=== PATIENT | female | born 1960 | race Caucasian/White ===

== ENCOUNTER 2017-04-12 15:32 | Inpatient (IN) ==
[2017-04-12] MEDS ORDERED: Aspirin 81 MG TAB.CHEW PO ONE (15:54)
[2017-04-12] MEDS ORDERED: 0.9 % Sodium Chloride 500 ML IVC ONE (15:54)
[2017-04-12 15:56] LABS: Basophils # 0.1 K/mcL (0.0-0.2); Basophils % 0.9 %; Eosinophils # 0.1 K/mcL (0.0-0.6); Eosinophils % 0.7 %; Hematocrit 37.1 % (35.3-44.9); Hemoglobin 10.8 g/dL (11.5-15.4); Immature Granulocytes % 0.4 % (0-4); Mean Corpuscular HGB Conc 29.1 g/dL (31.6-35.5); Mean Corpuscular Hemoglobin 19.4 pg (28.0-33.3); Mean Corpuscular Volume 66.7 fL (83.0-100.0); Mean Platelet Volume 9.7 fL (9.4-12.4); Monocytes # 0.6 K/mcL (0.0-1.3); Monocytes % 5.5 %; Neutrophils # 7.3 K/mcL (1.6-8.9); Platelet Count 388 K/mcL (140-400); Red Blood Count 5.56 M/mcL (3.82-4.97); Red Cell Distribution Width 17.2 % (11.5-14.5); Segmented Neutrophils % 72.5 %
--- NOTE | 2017-04-12 15:59 | Emergency Department Note ---
Disposition Clinical Impression: Numbness on left side, Atypical chest pain Disposition: Admitted As Inpatient Condition: Fair Referrals: Ren Garcia MD [Primary Care Provider] - Time of Disposition: 18:35 General Adult HPI - General Chief complaint: ED Chest Pain Stated complaint: Neuro symptoms/CP Time Seen by Provider: 04/12/17 15:37 Source: patient Mode of arrival: ambulatory Limitations: no limitations Nursing Notes Reviewed: Yes Vital Signs Reviewed: Yes - History of Present Illness HPI Narrative: 56-year-old female street hypertension and GERD, and hiatal hernia, presents complaining of chest pain and left-sided numbness onset 01:00 this a.m., she states actually that she has had chest pain for 3 days, headache for the last 3 days, she has been generally weak for the last 2 weeks. And she thinks that this morning at about 1 AM she noticed that her left side was numb she describes numbness in her face her arm and her leg. He endorses intermittent fever and chills has not taken her temperature, she also describes nonbilious vomiting almost daily, and attributes this to her hiatal hernia. She states her pain is 8 out of 10, located substernal and radiating to her left chest, crampy in quality. Patient also endorses diarrhea and constipation. Patient has no history of CVA, no history of [place] last stress test was 5 years ago. Onset (ago): hour(s) (13) Location: face, chest, left, upper extremity, lower extremity Radiation: non-radiation Pain Severity: severe Pain Scale: 8 Quality: burning, aching Consistency: intermittent Improves with: nothing Worsens with: nothing Treatments Prior to Arrival: none - Related Data Home Medications Medication Instructions Recorded Confirmed Esomeprazole Magnesium [Nexium] 40 mg PO BID 04/12/17 04/12/17 Hydroxychloroquine [Plaquenuil] 200 mg PO BID 04/12/17 04/12/17 Metoprolol [Lopressor] 25 mg PO BID 04/12/17 04/12/17 Oxycodone HCl/Acetaminophen 1 each PO TID PRN 04/12/17 04/12/17 [Percocet 10-325 mg Tablet] Promethazine [Phenergan] 25 mg PO TID PRN 04/12/17 04/12/17 Sertraline [Zoloft] 150 mg PO DAILY 04/12/17 04/12/17 hydroCHLOROthiazide 25 mg PO DAILY 04/12/17 04/12/17 [Hydrochlorothiazide] Allergies Allergy/AdvReac Type Severity Reaction Status Date / Time escitalopram [From Lexapro] Allergy Hives Verified 04/12/17 17:27 Sulfa (Sulfonamide Allergy Hives Verified 04/12/17 15:43 Antibiotics) amlodipine [From Norvasc] AdvReac Headache Verified 04/12/17 17:27 aripiprazole [From Abilify] AdvReac Unknown Verified 04/12/17 17:27 codeine AdvReac Vomiting Verified 04/12/17 17:27 duloxetine [From Cymbalta] AdvReac Unknown Verified 04/12/17 17:27 quetiapine [From Seroquel] AdvReac Chest Pain Verified 04/12/17 17:27 All systems ED: reviewed and negative except as stated. Review of Systems: As Per HPI Constitutional: Reports: fever, chills Eyes: Denies: eye pain ENT ED: Denies: ear pain Cardiovascular: Reports: as per HPI, chest pain Respiratory: Reports: dyspnea. Denies: cough Gastrointestinal: Reports: as per HPI, nausea, vomiting, diarrhea, constipation Genitourinary: Reports: urgency Musculoskeletal: Denies: back pain, neck pain Integumentary: Denies: rash, abrasion Neurological: Reports: as per HPI, headache, weakness, numbness, paresthesias. Denies: abnormal gait Psychiatric: Reports: as per HPI, anxiety Past Medical History - Past Medical History Attestation: Yes The following information was validated with the patient. Source: patient Medical history: Reports: GERD, hypertension Psychiatric history: Reports: anxiety, depression - Social History Smoking Status: Never smoker Smokeless Tobacco Status: No Alcohol use: Reports: none Drug use: Reports: none Physical Exam Constitutional: Patient with elevated blood pressure 190 systolic, appears very agitated and shaky and anxious Eyes: PERRLA, sclera anicteric ENT & Mouth: MM dry Neck: normal inspection, neck is supple Resp: CTA bilaterally, no resp distress CV: RRR, no m/g/r GI: normal inspection, soft, mild tenderness to palpation diffusely with no guarding or rigidity Neuro: A&O3, sensory deficit on the left upper and lower extremi ty, motor strength 5 out of 5 upper and lower extremity, gait untested Skin: on limited exam, skin intact with no rashes or lesions - General General appearance: alert, in no apparent distress Course Course Narrative: 56-year-old female with history of hypertension, no recent stress test has been having generalized weakness and chest pain, she has multiple positive review of systems symptoms and given her age and comorbidities including elevated systolic blood pressure history of hypertension and GERD, obesity, and her neurologic symptoms, I give her an NIH of 1 for the sensory deficits on her left face and upper and lower extremity, but otherwise she has no focal neurologic abnormalities, her NIH and the time of onset preclude her from being a candidate for TPA, however will get a stat CT head, and chest pain workup plan for aspirin and nitroglycerin trial after CT imaging is obtained, chest pain workup likely admission - Reevaluation(s) Reevaluation #1: Patient so with NIH of 1, multiple symptoms including headache, I did add additional fluids and Toradol for headache and Phenergan, patient's chest x-ray and troponin were negative, her EKG showed no evidence of acute ischemic changes , was unchanged from previous EKG 2 years ago, she get aspirin and nitroglycerin which reduced her blood pressure did help out with her chest pain but she still persisted of a headache, admission is to hospitalist service for further workup including possible MRI carotid studies for her neurologic complaints. Time: 18:34 Vital Signs Temperature 98.4 F 04/12/17 15:37 Pulse Rate 90 04/12/17 15:37 Respiratory Rate 16 04/12/17 15:37 Blood Pressure 196/114 04/12/17 15:37 O2 Sat by Pulse Oximetry 99 04/12/17 15:37 Temperature 98.4 F 04/12/17 15:37 Pulse Rate 98 04/12/17 17:55 Respiratory Rate 16 04/12/17 18:03 Blood Pressure 160/80 04/12/17 18:03 O2 Sat by Pulse Oximetry 98 04/12/17 17:55 Oxygen Delivery Oxygen Delivery Room Air Medical Decision Making - MDM Narrative Medical decision making narrative: 56-year-old female with chest pain and headache and new left-sided neuro symptoms outside of the window for TPA, given aspirin admitted to the medicine service for further workup - Medical Records Medical records reviewed: Yes I reviewed the patient's medical records. - Lab Data Lab results reviewed: Yes I reviewed the patient's lab results. Result diagrams: 04/12/17 15:45 04/12/17 15:45 Lab Results 04/12/17 04/12/17 04/12/17 Range/Units 15:45 15:45 15:45 WBC 10.1 (4.3-11.1) K/mcL RBC 5.56 H (3.82-4.97) M/mcL Hgb 10.8 L (11.5-15.4) g/dL Hct 37.1 (35.3-44.9) % MCV 66.7 L (83.0-100.0) fL MCH 19.4 L (28.0-33.3) pg MCHC 29.1 L (31.6-35.5) g/dL RDW 17.2 H (11.5-14.5) % Plt Count 388 (140-400) K/mcL MPV 9.7 (9.4-12.4) fL Immature Gran % 0.4 (0-4) % Seg Neutrophils % 72.5 % Lymphocytes % 20.0 % Monocytes % 5.5 % Eosinophils % 0.7 % Basophils % 0.9 % Neutrophils # 7.3 (1.6-8.9) K/mcL Lymphocytes # 2.0 (0.6-4.6) K/mcL Monocytes # 0.6 (0.0-1.3) K/mcL Eosinophils # 0.1 (0.0-0.6) K/mcL Basophils # 0.1 (0.0-0.2) K/mcL Microcytosis Present A (Not Present) PT 12.1 (9.4-12.1) Seconds INR 1.1 APTT 28.4 (26.0-36.0) Seconds Sodium 136 (136-145) mEq/L Potassium 3.2 L (3.5-4.5) mEq/L Chloride 98 (98-109) mEq/L Carbon Dioxide 26 (19-29) mEq/L BUN 8 (7-20) mg/dL Creatinine 0.71 (0.57-1.11) mg/dL Est GFR ( Amer) > 60 (> 60) Est GFR (Non-Af Amer) > 60 (> 60) BUN/Creatinine Ratio 11 (6-26) Glucose 103 H (70-99) mg/dL Calculated Osmolality 281 (280-300) Calcium 9.8 (8.6-10.8) mg/dL Total Bilirubin 0.6 (0.2-1.2) mg/dL Direct Bilirubin 0.2 (0.0-0.5) mg/dL Indirect Bilirubin 0.4 (0.0-1.2) mg/dL AST 20 (5-34) Units/L ALT 16 (0-55) Units/L Alkaline Phosphatase 101 (38-126) Units/L Troponin I (0-0.03) ng/mL B-Natriuretic Peptide (0-100) pg/mL Serum Total Protein 8.1 (6.0-8.3) g/dL Albumin 4.3 (3.5-5.0) g/dL Globulin 3.8 H (2.4-3.5) g/dL Albumin/Globulin Ratio 1.1 (1.1-2.2) Lipase 29 (8-78) Units/L TSH 1.210 (0.350-4.840) mcIU/mL Urine Color (Yellow) Urine Clarity (Clear) Urine pH (5.0-8.0) pH Units Ur Specific [employer] (1.010-1.025) Urine Protein (Neg-Trace) mg/dL Urine Glucose (UA) (Normal) mg/dL Urine Ketones (Negative) mg/dL Urine Blood (Negative) Urine Nitrite (Negative) Urine Bilirubin (Negative) Urine Urobilinogen (Normal) mg/dL Ur Leukocyte Esterase (Negative) Ur Culture Indicated? (NO) 04/12/17 04/12/17 04/12/17 Range/Units 15:45 15:45 16:00 WBC (4.3-11.1) K/mcL RBC (3.82-4.97) M/mcL Hgb (11.5-15.4) g/dL Hct (35.3-44.9) % MCV (83.0-100.0) fL MCH (28.0-33.3) pg MCHC (31.6-35.5) g/dL RDW (11.5-14.5) % Plt Count (140-400) K/mcL MPV (9.4-12.4) fL Immature Gran % (0-4) % Seg Neutrophils % % Lymphocytes % % Monocytes % % Eosinophils % % Basophils % % Neutrophils # (1.6-8.9) K/mcL Lymphocytes # (0.6-4.6) K/mcL Monocytes # (0.0-1.3) K/mcL Eosinophils # (0.0-0.6) K/mcL Basophils # (0.0-0.2) K/mcL Microcytosis (Not Present) PT (9.4-12.1) Seconds INR APTT (26.0-36.0) Seconds Sodium (136-145) mEq/L Potassium (3.5-4.5) mEq/L Chloride (98-109) mEq/L Carbon Dioxide (19-29) mEq/L BUN (7-20) mg/dL Creatinine (0.57-1.11) mg/dL Est GFR ( Amer) (> 60) Est GFR (Non-Af Amer) (> 60) BUN/Creatinine Ratio (6-26) Glucose (70-99) mg/dL Calculated Osmolality (280-300) Calcium (8.6-10.8) mg/dL Total Bilirubin (0.2-1.2) mg/dL Direct Bilirubin (0.0-0.5) mg/dL Indirect Bilirubin (0.0-1.2) mg/dL AST (5-34) Units/L ALT (0-55) Units/L Alkaline Phosphatase (38-126) Units/L Troponin I 0.00 (0-0.03) ng/mL B-Natriuretic Peptide 108 H (0-100) pg/mL Serum Total Protein (6.0-8.3) g/dL Albumin (3.5-5.0) g/dL Globulin (2.4-3.5) g/dL Albumin/Globulin Ratio (1.1-2.2) Lipase (8-78) Units/L TSH (0.350-4.840) mcIU/mL Urine Color Yellow (Yellow) Urine Clarity Clear (Clear) Urine pH 6.0 (5.0-8.0) pH Units Ur Specific [employer] 1.008 L (1.010-1.025) Urine Protein Negative (Neg-Trace) mg/dL Urine Glucose (UA) Normal (Normal) mg/dL Urine Ketones Negative (Negative) mg/dL Urine Blood Negative (Negative) Urine Nitrite Negative (Negative) Urine Bilirubin Negative (Negative) Urine Urobilinogen Normal (Normal) mg/dL Ur Leukocyte Esterase Negative (Negative) Ur Culture Indicated? NO (NO) - Radiology Data Radiology results reviewed: Yes I reviewed the patient's radiology results. Chest X-Ray 04/12/17 15:55 IMPRESSION: No acute process. D/ / Bob Cortez MD / Bob Cortez MD Interpreting Provider: Bob Cortez MD Head CT 04/12/17 15:56 IMPRESSION: No acute intracranial abnormality. D/ / Abi Morales MD / Abi Morales MD Interpreting Provider: Abi Morales MD - EKG Data EKG #1 EKG attestation: Yes I reviewed and interpreted this EKG. EKG shows normal: sinus rhythm Rate: normal (89 beats per minute OK 176 QRS 100 and QTc 446 motion artifact, T- wave inversions in precordial leads and mild ST depressions seen on previous EKG September 2014) Rhythm: NSR [place]/QRS: normal ST segment depression in: v3, v4, v5 Interpretation: no acute changes - Core Measures AMI Core Measures Followed: Yes Attestation Statement - Attestation Attestation: I examined this patient and my medical decision-making was reviewed with the Resident Physician, Dr. Wong. I agree with the documented findings, disposition and treatment plan as described except to the extent set forth below. Patient is a 56-year-old white female with a chief complaint of chest pain for the past 3 days associated with generalized headaches decreased by mouth intake and occasional vomiting with any attempts at by mouth intake. Patient also here complaining of left-sided numbness that started approximately 15 hours ago at 1 in the morning which has been constant since that time. Patient denies any slurred speech no facial droop, no weakness of the extremities no difficulty ambulating, no dizziness or vertigo. She denies any visual changes. Patient complains of pain in her substernal chest, which patient states is "the same pain that I have been having with my hiatal hernia and my esophagus". Apparently patient has been having symptoms that have been going on for over 6 months involving her hiatal hernia and she had a GI evaluation in [place] which sounds like the findings were achalasia and patient states that she has been referred by her family doctor to come here and see Dr. Bahena in 2 weeks for a second opinion. Patient states that her symptoms have been gradually worsening in regards to ankle swallowing difficulty swallowing and states that now she feels like things get stuck when she swallows and causes vomiting. Patient has had gradually worsening PO intake secondary to these symptoms and also has been having difficulty taking her medications. Patient was concerned with not being able to tolerate her blood pressure medicines with symptoms of numbness and headaches today. Patient arrives with no acute distress, NIH stroke scale equals 1, and based on timeframe patient is far outside the window for any consideration for TPA or stroke alert. I agree with patient's physical exam findings as documented. Patient was quite hypertensive on arrival. She was given nitroglycerin for her chest pain which did not show any improvements with her pain did improve her blood pressure. Patient's EKG shows some old ischemic changes in the inferolateral leads and anteriorly that is unchanged compared to prior EKG. Patient's head CT and chest x-ray were both unremarkable for any acute findings. Patient's lab evaluation is unremarkable overall with a negative troponin. Patient does have a microcytic anemia which is unchanged from prior lab evaluations. Patient's neuro exam has remained stable over time, no worsening symptoms. Considering patient's risk factors we will admit her for further evaluation of this chest pain as well as further neurologic evaluation of her left-sided subjective numbness. Test results were discussed with her and her and they agree with admission for further evaluation and testing. Patient with improved blood pressure at this time, discussed with the hospitalist who accepted patient for admission. NIH Stroke Scale - Level of Consciousness LOC: Alert - LOC Questions LOC Questions: Answers both correctly - LOC Commands LOC Commands: Performs both correctly - Best Gaze Best Gaze: Normal - Visual Visual: No visual loss - Facial Palsy Facial Palsy: Normal - Motor Arms Motor Arm-Left: No drift for 10 seconds Motor Arm-Right: No drift for 10 seconds - Motor Legs Motor Leg-Left: No drift for 5 seconds Motor Leg-Right: No drift for 5 seconds - Limb Ataxia Limb Ataxia: Absent of affected limb too weak to perform exam - Sensory Sensory: Mild to moderate loss, "not as sharp" - Best Language Best Language: No aphasia - Dysarthria Dysarthria: Normal - Extinction and Inattention Extinction and Inattention: Normal - NIHSS Total Score NIHSS Total Score: 1
[2017-04-12 16:04] LABS: INR 1.1; Prothrombin Time 12.1 Seconds (9.4-12.1)
[2017-04-12 16:06] LABS: Activated Partial Thrombo Time 28.4 Seconds (26.0-36.0)
[2017-04-12 16:08] LABS: BUN/Creatinine Ratio 11 (6-26); Blood Urea Nitrogen 8 mg/dL (7-20); Calcium 9.8 mg/dL (8.6-10.8); Carbon Dioxide 26 mEq/L (19-29); Chloride 98 mEq/L (98-109); Glucose 103 mg/dL (70-99); Osmolality,Calculated 281 (280-300); Potassium 3.2 mEq/L (3.5-4.5); Sodium 136 mEq/L (136-145); eGFR For African Americans > 60 (> 60); eGFR For Non-African Americans > 60 (> 60)
[2017-04-12 16:12] LABS: Bilirubin,Urine Negative (Negative); Blood,Urine Negative (Negative); Clarity,Urine Clear (Clear); Color,Urine Yellow (Yellow); Glucose,Urine (UA) Normal (Normal); Ketones,Urine Negative (Negative); Leukocyte Esterase,Urine Negative (Negative); Nitrite,Urine Negative (Negative); Protein,Urine Negative (Neg-Trace); Specific Gravity,Urine 1.008 (1.010-1.025); Urobilinogen,Urine Normal (Normal)
[2017-04-12 16:17] LABS: Microcytosis Present (Not Present)
[2017-04-12 16:20] LABS: Alanine Aminotransferase 16 Units/L (0-55); Albumin 4.3 g/dL (3.5-5.0); Albumin/Globulin Ratio 1.1 (1.1-2.2); Alkaline Phosphatase 101 Units/L (38-126); Aspartate Amino Transferase 20 Units/L (5-34); Bilirubin,Direct 0.2 mg/dL (0.0-0.5); Bilirubin,Indirect 0.4 mg/dL (0.0-1.2); Bilirubin,Total 0.6 mg/dL (0.2-1.2); Globulin 3.8 g/dL (2.4-3.5); Lipase 29 Units/L (8-78); Total Protein 8.1 g/dL (6.0-8.3)
[2017-04-12] MEDS: Nitroglycerin 0.4 MG TAB.SUBL SL ONE ×2 (17:06→17:13)
[2017-04-12] MEDS ORDERED: Ondansetron 4 MG/2 ML VIAL IVP ONE (17:09)
[2017-04-12] MEDS ORDERED: 0.9 % Sodium Chloride 1,000 ML IVC ONE (17:39)
[2017-04-12] MEDS ORDERED: Ketorolac 15 MG/ML VIAL IVP ONE (17:39)
[2017-04-12] MEDS ORDERED: *HR* Promethazine 25 MG/ML VIAL IVP ONE (17:39)
[2017-04-12] MEDS ORDERED: Naloxone 0.4 MG/ML INJ IVP PRN (20:20)
--- NOTE | 2017-04-12 20:32 | Internal Med History&Physical ---
<Beau Trivedi J - Last Filed: 04/12/17 20:30> Date of Encounter: 04/12/17 Time of Encounter: 20:30 Assessment and Plan (1) ACS (acute coronary syndrome) Current visit: Yes Status: Suspected Substernal CP X3 days with radiation to left arm. No prior cardiac history, non- smoker only history of HTN and HLD. ASCVD risk calculator 5.7% low-risk. She appear very anxious, and chest pain appears atypical. Resting on room air and not having conversational dyspnea. However, d/t continued CP and subjective dyspnea We will continue to r/o ACS. Nuclear stress in AM~ consult cardio based on result of stress Serial troponins NPO after midnight Continuous Tele, respiratory support with O2 PRN for dyspnea CBC, BMP in am (2) Atypical chest pain Current visit: Yes Status: Acute see above (3) Anxiety and depression Current visit: Yes Status: Acute H/O anxiety and depression. Continue Zoloft at home dose for depression. Anxiety likely contributing to chest pain/ subjective dyspnea. Was on ativan for years but PCP discontinued. Will start 0.5mg ativan PO TID PRN while in hospital. (4) Numbness on left side Current visit: Yes Status: Acute Continues to endorse N/T of LLE, no focal neuro deficits noted. CT head negative. Continue to monitor for neuro changes. (5) HTN (hypertension) Current visit: Yes Status: Acute Remains hypertensive likely r/t her anxiety. Resumed BB and HCTZ. Continue to monitor and consider adding adjunct therapy if she remains hypertensive. Qualifiers: Hypertension type: essential hypertension Qualified Code(s): I10 - Essential (primary) hypertension (6) Diffuse esophageal spasm Current visit: Yes Status: Acute H/o esophageal spasms. Supposed to get endoscopy in [place]. Assess whether or not she'd like to have it completed here before discharge. (7) DVT prophylaxis Current visit: Yes Status: Acute lovenox 40mg SC daily Internal Medicine - H&P: HPI Chief complaint: CP X3 DAYS, new LUE and LLE n/t Admitted From: Home Plans for Post Hospital Care: Home History of present illness: Ms. Hanson is a 56 year old female with a PMH of GERD, hiatal hernia, HLD, HTN, anxiety and depression presenting to [facility] with an ongoing 3 day h/o substernal CP, and H/A. Chest pain is described as 8/10 achy with radiation to LUE. Additionally she has concerns for LUE, LLE numbness and tingling which began yesterday morning and is ongoing. She admits to intermittent fevers, nausea and vomiting and diarrhea for 3 days as well. Has no cardiac history, no cva history. Workup in ED unremarkable. Ct head negative for acute intracranial process, CXR negative for acute pulmonary process. Admitting for further evaluation and monitoring. Past Med Surg Social Fam HX - Past Medical History Medical history: GERD, hypertension Psychiatric history: anxiety, depression - Social History Smoking Status: Never smoker Smokeless Tobacco Status: No Alcohol use: none Drug use: none - Family History Mother Living Status: Still Living Hx Family Neurologic Disorders: Yes (brain aneurysm) Father Living Status: Hx Family Endocrine Disorder: Yes (pancreatic cancer) Internal Medicine - H&P: Meds Esomeprazole Magnesium [Nexium] 40 mg PO BID 04/12/17 [History] Hydroxychloroquine [Plaquenuil] 200 mg PO BID 04/12/17 [History] Metoprolol [Lopressor] 25 mg PO BID 04/12/17 [History] Oxycodone HCl/Acetaminophen [Percocet 10-325 mg Tablet] 1 each PO TID PRN [History] Promethazine [Phenergan] 25 mg PO TID PRN 04/12/17 [History] Sertraline [Zoloft] 150 mg PO DAILY 04/12/17 [History] hydroCHLOROthiazide [Hydrochlorothiazide] 25 mg PO DAILY 04/12/17 [History] 3 Allergy/AdvReac Type Severity Reaction Status Date / Time escitalopram [From Lexapro] Allergy Hives Verified 04/12/17 17:27 Sulfa (Sulfonamide Allergy Hives Verified 04/12/17 15:43 Antibiotics) amlodipine [From Norvasc] AdvReac Headache Verified 04/12/17 17:27 aripiprazole [From Abilify] AdvReac Unknown Verified 04/12/17 17:27 codeine AdvReac Vomiting Verified 04/12/17 17:27 duloxetine [From Cymbalta] AdvReac Unknown Verified 04/12/17 17:27 quetiapine [From Seroquel] AdvReac Chest Pain Verified 04/12/17 17:27 All Systems PM: A 10-system review of systems was performed and is negative for pertinent findings except as documented above in the HPI. - Constitutional Constitutional: fatigue, weakness, no chills, no fever(s), no night sweats, no weight gain, no weight loss - EENT Eyes: spots in vision (x 2 days ago; has subsided as of this morning), no blurry vision, no change in vision, no loss of vision, no photophobia, no seeing flashes - Cardiovascular Cardiovascular ROS IM: as per HPI, chest pain (x 3 days), dyspnea on exertion, lightheadedness, no edema, no irregular heart rhythm, no orthopnea, no palpitations - Respiratory Respiratory: dyspnea on exertion, no cough, no dyspnea, no wheezing, no pain on inspiration, no chest congestion, no pain with cough - Gastrointestinal Gastrointestinal: abdominal pain (epigastric and RLQ, LLQ chronic pain), nausea , vomiting (for months; she attributes it to hiatal hernia), no change in bowel habits - Genitourinary Genitourinary: no difficulty voiding, no dysuria, no flank pain, no urinary frequency, no urinary hesitancy, no urinary incontinence, no urinary urgency - Musculoskeletal Musculoskeletal ROS IM: arthralgias, back pain (chronic, also c/o chronic left hip pain greater than 1 year), muscle weakness, numbness (N/T LLE, and LUE), tingling, no joint swelling, no limited range of motion, no muscle cramps, no myalgias - Neurological Neurological ROS: as per HPI, headache(s) (x 3 days), numbness, radicular pain, tingling, weakness, no abnormal gait, no abnormal hearing, no abnormal movements , no abnormal speech, no burning sensations, no confusion, no disequilibrium, no dizziness, no focal weakness, no frequent falls, no lack of coordination, no loss of vision - Psychiatric Psychiatric: anxiety, depression - Constitutional Vitals: Temp Pulse Resp BP Pulse Ox 98.2 F 73 16 171/78 95 04/12/17 19:03 04/12/17 19:03 04/12/17 19:03 04/12/17 19:03 10/03/17 19:03 General appearance: Present: mild distress, A&O X 3, answers questions appropriately - Head Head exam: Present: atraumatic, normocephalic - Eye Eye exam: Present: EOMI, PERRL, conjuntiva pink, sclera anicteric Pupils: Present: PERRL - Neck Neck exam general surgery: Present: supple, trachea midline. Absent: lymphadenopathy - Respiratory Respiratory exam: Present: CTAB. Absent: accessory muscle use, rales, rhonchi, wheezes - Cardiovascular Cardiovascular exam: Present: RRR, +S1, +S2. Absent: diastolic murmur, gallop, rubs, systolic murmur - GI/Abdominal GI/Abdominal exam: Present: normal bowel sounds, soft, tenderness (mild tenderness LLQ, RLQ ), no peritoneal signs. Absent: distended, firm, guarding, rebound, rigid - Extremities Exam Extremities exam: Present: warm, radial pulses palpable and symmetrical. Absent : calf tenderness, cyanotic, pedal edema - Neurological Exam Neurological exam: Present: alert, CN II-XII intact, oriented X3, no focal deficits, strengths equal and symetr throughout. Absent: motor sensory deficit , pronater drift, facial droop, speech deficit - Expanded Neurological Exam Patient oriented to: Present: person, place, time Cranial Nerves: EOM's intact PM: Normal, gag reflex PM: Normal, nystagmus PM: Normal, tongue deviation PM: Normal Cerebellar function: finger to nose: Normal, heel to cruz: Normal, Romberg: Normal Upper motor neuron: Babinski sign: Normal, Murphy neglect: Normal, pronator drift : Normal, sensory extinction: Normal Sensory exam: lower extremity light touch: Normal, upper extremity light touch: Normal, upper extremity temperature: Normal Neuro motor strength exam: LUE: 5, RUE: 5, LLE: 5, RLE: 5 Coma Scale Eye Opening: Spontaneous Coma Scale Motor Response: Obeys Commands Coma Scale Verbal Response: Oriented Coma Scale Total: 15 - Psychiatric Psychiatric exam: Present: anxious, depressed. Absent: homicidal ideation, manic, suicidal ideation Internal Med - H&P Results - Labs CBC & Chem 7: 04/12/17 15:45 04/12/17 15:45 - EKG Data -: EKG Interpreted by Myself EKG shows normal: sinus rhythm - EKG Data Prior EKG available for review: yes When compared to previous EKG: there is no significant change - Diagnostic Studies CT scan - head Status: image reviewed by me Additional comments: no acute intracranial process, no midline shift, mass effect or hemorrhage noted. No ischemic changes <Bianka Hsu - Last Filed: 04/13/17 03:34> Date of Encounter: 04/13/17 Internal Medicine - H&P: HPI History of present illness: Ms. Hanson is a 56 year old female All Systems PM: A 10-system review of systems was performed and is negative for pertinent findings except as documented above in the HPI. - Constitutional Vitals: Temp Pulse Resp BP Pulse Ox 98.1 F 74 16 184/93 96 04/13/17 00:18 04/13/17 00:18 04/13/17 00:18 04/13/17 00:18 04/13/17 00:18 Internal Med - H&P Results - Labs CBC & Chem 7: 04/12/17 15:45 04/12/17 15:45 Labs: Cardiac Enzymes 04/12/17 Range/Units 20:55 Troponin I 0.00 (0-0.03) ng/mL - Attending Attestation I have personally performed a face to face evaluation on this patient and I discussed the assessment and plan with the nurse practitioner. I have reviewed and agree with the documented care plan. History and Exam by me shows: Ms. Hanson is a 56 year old female with a PMH of GERD, hiatal hernia, HLD, HTN, anxiety and depression presenting to [facility] with an ongoing 3 day h/o substernal CP, and H/A. Chest pain is described as 8/10 achy with radiation to LUE. Additionally she has concerns for LUE, LLE numbness and tingling which began yesterday morning and is ongoing. She admits to intermittent fevers, nausea and vomiting and diarrhea for 3 days as well. Has no cardiac history, no cva history. Workup in ED unremarkable. Ct head negative for acute intracranial process, CXR negative for acute pulmonary process. Gen: A, A, O x3 Chest : Diminished BS b/l, no crackles / no rales Heat: S1 S2 + RRR No murmurs a/p 1. Acute chest pain check serial trop no acute EKG changes will get stress test in AM 2. Esophageal spasm / Odynophagia Need to f/u with her regular GI as an out pt scheduled for EGD as an out pt in few days 3. Anxiety resumed home meds
[2017-04-12] MEDS: *HR* OxyCODONE/APAP 10/325 TABLET PO PRN (21:34)
[2017-04-13] MEDS: *HR* LORazepam 0.5 MG TABLET PO PRN ×3 (02:50→20:01)
[2017-04-13 04:44] LABS: Basophils # 0.1 K/mcL (0.0-0.2); Basophils % 1.1 %; Eosinophils # 0.1 K/mcL (0.0-0.6); Eosinophils % 1.4 %; Hematocrit 33.8 % (35.3-44.9); Hemoglobin 9.9 g/dL (11.5-15.4); Immature Granulocytes % 0.5 % (0-4); Lymphocytes # 2.5 K/mcL (0.6-4.6); Mean Corpuscular HGB Conc 29.3 g/dL (31.6-35.5); Mean Corpuscular Hemoglobin 19.8 pg (28.0-33.3); Mean Corpuscular Volume 67.5 fL (83.0-100.0); Mean Platelet Volume 10.4 fL (9.4-12.4); Monocytes # 0.8 K/mcL (0.0-1.3); Monocytes % 8.4 %; Neutrophils # 5.7 K/mcL (1.6-8.9); Platelet Count 324 K/mcL (140-400); Red Blood Count 5.01 M/mcL (3.82-4.97); Red Cell Distribution Width 17.2 % (11.5-14.5); Segmented Neutrophils % 61.6 %
[2017-04-13 05:03] LABS: BUN/Creatinine Ratio 13 (6-26); Blood Urea Nitrogen 9 mg/dL (7-20); Carbon Dioxide 24 mEq/L (19-29); Chloride 102 mEq/L (98-109); Glucose 91 mg/dL (70-99); Osmolality,Calculated 280 (280-300); Potassium 3.1 mEq/L (3.5-4.5); Sodium 136 mEq/L (136-145); eGFR For African Americans > 60 (> 60); eGFR For Non-African Americans > 60 (> 60)
[2017-04-13 05:12] LABS: Anisocytosis 1+ (Not Present); Microcytosis Present (Not Present); Platelet Estimate Normal (Normal); Polychromasia 1+ (Not Present)
[2017-04-13] MEDS: *HR* Enoxaparin 40 MG/0.4 ML SYRINGE SQ SCH (06:03)
[2017-04-13] MEDS: *HR* OxyCODONE/APAP 10/325 TABLET PO PRN ×3 (06:04→20:02)
[2017-04-13] MEDS ORDERED: Regadenoson 0.4 MG/5 ML SYRINGE IVP ONE (06:14)
[2017-04-13] MEDS: Aspirin Enteric Coated 81 MG Tablet PO SCH (10:11)
[2017-04-13] MEDS: hydroCHLOROthiazide 25 MG TABLET PO SCH (10:11)
--- NOTE | 2017-04-13 10:37 | Nuclear Medicine Stress Report ---
Regadenoson Nuclear Stress Name: Bharti Hanson Date of Study: 04/13/2017 Date: 1960 Ht: 65.0 in Medical Record#: [id number] Age: 56 Wt: 213.0 lb Gender: Female Order #: [id number] Location: [facility] Room: [employer] [facility] [employer] [facility] Supervising Provider: Selwyn Stinson CNP Reading Physician: Rigoberto Ruiz DO, FACC, FASNC Ordering Physician: Albina Espinosa CNP Stress Technologist: Victor Manuel Quiñones, CHIEF PSYCHOLOGY, CCT Patient Care Manager: Ryan Albarado Indications: Chest Pain Impression: Pharmacologic stress ECG is non-diagnostic for ischemia due to submaximal heart rate and baseline ST and T-wave changes. Gated EF > 70%. Perfusion imaging was negative for ischemia or infarct. History: Hypertension Stress Test Summary: Stress Test Type: Pharmacologic Regadenoson 0.4mg/5ml given IV Baseline Information: Initial Heart Rate: 80 Blood Pressure: 180/98 Stress Information: Stress Time: 4 min 00 sec Test Terminated Due to (primary): Completed Protocol Maximum Blood Pressure: 190/98 Maximum Heart Rate: 109 Percent Maximum Heart Rate Achieved: 67 Double Product: 20,710 METS Reached: 1 Symptoms: Headache Nuclear Summary: SPECT myocardial perfusion imaging using Tc99m Sestamibi given intravenously was performed at rest and following cardiac stress testing. The resting images were obtained following initial dose of 10.4 mCi. Following stress an additional dose of 34.7 mCi was given at peak exercise or 30 seconds post regadenoson infusion. Medication Given: Time Medication Dose Units Route Findings: Stress Note * Resting ECG demonstrated normal sinus rhythm, RBBB, and nonspecific ST-T changes. * No baseline arrhythmias were noted. * Pharmacologic stress ECG is nondiagnostic for ischemia due to submaximal heart rate and baseline ST and T-wave changes. * No arrhythmias were noted during stress. * Patient had no chest pain during stress. Hemodynamic responses * Normal hemodynamic responses to pharmacologic stress. Study Quality * Study quality is good. Gated EF > 70% * Gated EF > 70%. Left Ventricle * The left ventricle is not dilated. * LVEDV = 70 mL. NORMALS * Normal wall motion. * Normal Segmental Perfusion in rest. * Normal segmental perfusion in stress. TID * No evidence of transient ischemic dilatation. TID ratio * TID ratio = 0.86. Lung Uptake * There is no evidence of increase lung uptake. Updated by Rigoberto Ruiz DO, FACMateusz, TIARA, ROLANDA on 04/13/2017 10:28:53 AM electronically signed on 04/13/2017 10:29:46 AM with status of Final
--- NOTE | 2017-04-13 14:17 | Internal Med Progress Note ---
Date of Encounter: 04/13/17 Time of Encounter: 14:12 - Assessment and plan (1) Chest pain Current Visit: Yes Status: Acute Assessment and plan: Bharti Hanson is a 56-year-old female with past medical history hypertension anxiety and depression who presented to [facility] on 04/12/2017 with complaints of chest pain and left-sided arm numbness/tingling. She was placed in observation status for ACS rule out. 1. Chest pain: That started morning of presentation with radiation of pain/ numbness to left arm. ASA given in ED. Serial troponins negative, EKG without acute ST changes. Lexiscan stress test negative for ischemia. Suspect anxiety is contributing to chest pain. 2. Left arm paresthesia: that started morning of presentation. Etiology unknown at this time. Possibly secondary to anxiety. She does have history of previous CVA. Continue home ASA. Brain MRI pending. 3. Hiatal hernia: with diffuse esophageal spasm. Patient reports recent EGD at [facility] that showed impairment peristalsis; she was advised to seek a second opinion. In the process of establishing care with GI here at [place]. Consult GI as this could be contributing to chest pain/discomfort as well. Nothing by mouth at midnight, EGD planned for 04/14 4. Anxiety with depression: per hx. Patient appears very anxious on exam. Follows with psychiatry outpatient and was tapered off Ativan approximately 3 months ago. Suspect her anxiety is contributing to her chest pain and left arm paresthesia. Continue home Zoloft. Psychiatry consult at 4 official medication recommendations. Ativan started on admission, we will continue for now (patient advised that she would not be given Rx for Ativan as medication was stopped per outpatient psychiatry). Will need to follow up with outpatient psychiatry. 5. Loose stool: Reports 2 episodes of watery stool on 04/13/17. Was treated for UTI with ATB approximately 2 months ago. Check stool for C. difficile, if negative can start PRN loperamide 6. Hypokalemia: K 3.1 and in the setting of loose stool. Potassium replaced. Monitor repeat CMP 7. DVT prophylaxis: Lovenox Qualifiers: Chest pain type: other chest pain Qualified Code(s): R07.89 - Other chest pain; R07.8 - Other chest pain (2) Anxiety and depression Current Visit: Yes Status: Acute (3) Diffuse esophageal spasm Current Visit: Yes Status: Acute (4) DVT prophylaxis Current Visit: Yes Status: Acute (5) HTN (hypertension) Current Visit: Yes Status: Acute Qualifiers: Hypertension type: essential hypertension Qualified Code(s): I10 - Essential (primary) hypertension - Subjective Interval history: Seen and examined at bedside, she appears quite anxious and has multiple complaints. She still complaining of chest pain with radiation of pain/ numbness to left arm. She also reports a headache and nasal congestion, abdominal pain and difficulty swallowing. She reported to loose watery stools today as well. - Constitutional Vitals: Temp Pulse Resp BP Pulse Ox 99.7 F H 74 17 178/82 95 04/13/17 11:39 04/13/17 11:39 04/13/17 11:39 04/13/17 11:39 04/13/17 11:39 General appearance: Present: A&O X 3, no acute distress, answers questions appropriately - Head Head exam: Present: atraumatic, normocephalic - Eye Eye exam: Present: PERRL, conjuntiva pink, sclera anicteric Pupils: Present: PERRL - Neck Neck exam general surgery: Present: supple, trachea midline. Absent: lymphadenopathy - Respiratory Respiratory exam: Present: CTAB. Absent: accessory muscle use, rales, rhonchi, wheezes - Cardiovascular Cardiovascular exam: Present: RRR, +S1, +S2. Absent: diastolic murmur, gallop, rubs, systolic murmur - GI/Abdominal GI/Abdominal exam: Present: normal bowel sounds, soft, no peritoneal signs. Absent: distended, tenderness - Extremities Exam Extremities exam: Present: warm, radial pulses palpable and symmetrical. Absent : calf tenderness, cyanotic, pedal edema - Neurological Exam Neurological exam: Present: CN II-XII intact, oriented X3, no focal deficits. Absent: pronater drift, facial droop, speech deficit - Psychiatric Psychiatric exam: Present: anxious - Skin Skin exam: Present: dry, intact Internal Medicine: Result - Labs CBC & Chem 7: 04/13/17 03:07 04/13/17 03:07 Labs: Short CBC 04/13/17 Range/Units 03:07 WBC 9.3 (4.3-11.1) K/mcL Hgb 9.9 L (11.5-15.4) g/dL Hct 33.8 L (35.3-44.9) % Plt Count 324 (140-400) K/mcL Neutrophils # 5.7 (1.6-8.9) K/mcL BMP 04/13/17 03:07 Sodium 136 Potassium 3.1 L Chloride 102 Carbon Dioxide 24 BUN 9 Creatinine 0.69 Glucose 91 Calcium 9.0 Cardiac Enzymes 04/12/17 04/13/17 Range/Units 20:55 03:07 Troponin I 0.00 0.00 (0-0.03) ng/mL - ABG Interpretation ABG results: PT/INR, D-dimer PT 12.1 Seconds (9.4-12.1) 04/12/17 15:45 Consult Discharge Plan - Plan Referrals: Ren Garcia MD [Primary Care Provider] -
[2017-04-14] MEDS: *HR* Enoxaparin 40 MG/0.4 ML SYRINGE SQ SCH (05:35)
[2017-04-14 05:50] LABS: Hemoglobin 10.6 g/dL (11.5-15.4); Mean Corpuscular HGB Conc 29.4 g/dL (31.6-35.5); Mean Corpuscular Hemoglobin 20.3 pg (28.0-33.3); Mean Corpuscular Volume 69.1 fL (83.0-100.0); Platelet Count 310 K/mcL (140-400); Red Blood Count 5.21 M/mcL (3.82-4.97); Red Cell Distribution Width 18.4 % (11.5-14.5)
[2017-04-14 05:52] LABS: INR 1.2; Prothrombin Time 12.5 Seconds (9.4-12.1)
[2017-04-14 06:05] LABS: Alanine Aminotransferase 16 Units/L (0-55); Albumin 3.9 g/dL (3.5-5.0); Albumin/Globulin Ratio 1.2 (1.1-2.2); Alkaline Phosphatase 90 Units/L (38-126); Aspartate Amino Transferase 21 Units/L (5-34); BUN/Creatinine Ratio 10 (6-26); Bilirubin,Total 0.4 mg/dL (0.2-1.2); Blood Urea Nitrogen 7 mg/dL (7-20); Calcium 9.6 mg/dL (8.6-10.8); Carbon Dioxide 26 mEq/L (19-29); Chloride 106 mEq/L (98-109); Globulin 3.3 g/dL (2.4-3.5); Glucose 119 mg/dL (70-99); Osmolality,Calculated 295 (280-300); Potassium 3.7 mEq/L (3.5-4.5); Sodium 143 mEq/L (136-145); Total Protein 7.2 g/dL (6.0-8.3); eGFR For African Americans > 60 (> 60); eGFR For Non-African Americans > 60 (> 60)
[2017-04-14] MEDS: Aspirin Enteric Coated 81 MG Tablet PO SCH (07:59)
[2017-04-14] MEDS: hydroCHLOROthiazide 25 MG TABLET PO SCH (08:00)
[2017-04-14] MEDS: *HR* LORazepam 0.5 MG TABLET PO PRN ×2 (08:00→21:55)
[2017-04-14] MEDS ORDERED: Saline Nasal Spray 44 ML BOTTLE NS PRN (11:30)
--- NOTE | 2017-04-14 11:44 | Internal Med Progress Note ---
Date of Encounter: 04/14/17 Time of Encounter: 11:36 - Assessment and plan (1) Chest pain Current Visit: Yes Status: Acute Assessment and plan: Bharti Hanson is a 56-year-old female with past medical history hypertension anxiety and depression who presented to [facility] on 04/12/2017 with complaints of chest pain and left-sided arm numbness/tingling. She was placed in observation status for ACS rule out. Hospitalization prolonged due to need for GI and Psych consult and uncontrolled BP 1. Hiatal hernia: with diffuse esophageal spasm. Patient reports recent EGD at [facility] that showed impairment in peristalsis; she was advised to seek a second opinion. This could be contributing to chest pain. EGD planned 04/14. GI following. 2. Chest pain: with associated left arm paresthesia that started morning of admission. ASA given in ED. ACS ruled out with negative serial troponin and negative Lexiscan stress test. CVA ruled out with negative brain MRI. Suspect anxiety is contributing to chest pain. 3. Anxiety with depression: per hx. Patient appears very anxious on exam. Follows with psychiatry outpatient and was tapered off Ativan approximately 3 months ago. Suspect her anxiety is contributing to her chest pain and left arm paresthesia. Continue home Zoloft. Psychiatry consult at 4 official medication recommendations. Ativan started on admission, we will continue for now (patient advised that she would not be given Rx for Ativan as medication was stopped per outpatient psychiatry). Will need to follow up with outpatient psychiatry. 4. Loose stool: Reports 2 episodes of watery stool on 04/13/17. Was treated for UTI with ATB approximately 2 months ago. Stool too formed to check for C. diff. Cont PRN loperamide 5. Hypokalemia: K 3.1 and in the setting of loose stool. Normalized with replacement. Monitor repeat CMP 6. DVT prophylaxis: Lovenox Qualifiers: Chest pain type: other chest pain Qualified Code(s): R07.89 - Other chest pain; R07.8 - Other chest pain (2) Anxiety and depression Current Visit: Yes Status: Acute (3) Diffuse esophageal spasm Current Visit: Yes Status: Acute (4) DVT prophylaxis Current Visit: Yes Status: Acute (5) HTN (hypertension) Current Visit: Yes Status: Acute Qualifiers: Hypertension type: essential hypertension Qualified Code(s): I10 - Essential (primary) hypertension - Subjective Interval history: Seen and examined at bedside, she still c/o headache and nasal congestion, abdominal pain and difficulty swallowing. Reports feeling anxious and requesting ativan. No CP, no SOB. She reports dysuria today - Constitutional Vitals: Temp Pulse Resp BP Pulse Ox 98.6 F 98 16 154/99 95 04/14/17 10:49 04/14/17 10:49 04/14/17 10:49 04/14/17 10:49 04/14/17 10:49 General appearance: Present: A&O X 3, no acute distress, answers questions appropriately - Head Head exam: Present: atraumatic, normocephalic - Eye Eye exam: Present: PERRL, conjuntiva pink, sclera anicteric Pupils: Present: PERRL - Neck Neck exam general surgery: Present: supple, trachea midline. Absent: lymphadenopathy - Respiratory Respiratory exam: Present: CTAB. Absent: accessory muscle use, rales, rhonchi, wheezes - Cardiovascular Cardiovascular exam: Present: RRR, +S1, +S2. Absent: diastolic murmur, gallop, rubs, systolic murmur - GI/Abdominal GI/Abdominal exam: Present: normal bowel sounds, soft, no peritoneal signs. Absent: distended, tenderness - Extremities Exam Extremities exam: Present: warm, radial pulses palpable and symmetrical. Absent : calf tenderness, cyanotic, pedal edema - Neurological Exam Neurological exam: Present: CN II-XII intact, oriented X3, no focal deficits. Absent: pronater drift, facial droop, speech deficit Additional comments: appears anxious - Skin Skin exam: Present: dry, intact Internal Medicine: Result - Labs CBC & Chem 7: 04/14/17 05:20 04/14/17 05:20 Labs: Short CBC 04/14/17 Range/Units 05:20 WBC 7.9 (4.3-11.1) K/mcL Hgb 10.6 L (11.5-15.4) g/dL Hct 36.0 (35.3-44.9) % Plt Count 310 (140-400) K/mcL BMP 04/14/17 05:20 Sodium 143 D Potassium 3.7 Chloride 106 Carbon Dioxide 26 BUN 7 Creatinine 0.70 Glucose 119 H Calcium 9.6 Liver Function 04/14/17 Range/Units 05:20 Total Bilirubin 0.4 (0.2-1.2) mg/dL AST 21 (5-34) Units/L ALT 16 (0-55) Units/L Alkaline Phosphatase 90 (38-126) Units/L Albumin 3.9 (3.5-5.0) g/dL - ABG Interpretation ABG results: PT/INR, D-dimer PT 12.5 Seconds (9.4-12.1) H 04/14/17 05:20 - Impressions Impressions Brain MRI 04/13/17 14:51 IMPRESSION: No acute intracranial abnormality. No acute infarct. D/ / Micah Harrington MD / Micah Harrington MD Interpreting Provider: Micah Harrington MD Consult Discharge Plan - Plan Referrals: Ren Garcia MD [Primary Care Provider] -
[2017-04-14] MEDS: *HR* OxyCODONE/APAP 10/325 TABLET PO PRN ×2 (12:03→21:55)
--- NOTE | 2017-04-14 12:24 | Gastroenterology Consult Note ---
<Krystal Lundy - Last Filed: 04/14/17 12:21> Date of Encounter: 04/14/17 Time of Encounter: 10:30 - Assessment and plan (1) Iron deficiency anemia Current Visit: Yes Status: Acute Assessment and plan: History of anemia documented back to 2010. Pt had EGD 10/24/[address] Moss showed normal esophagus, hiatal hernia, gastritis. Colonoscopy 04/07/[address] Trujillo showed diverticulosis with focal diverticulitis. She reports colonoscopy by Dr Zabala 2 years ago. She may need iron supplementation. Will proceed with EGD to rule out chronic blood loss. (2) Atypical chest pain Current Visit: Yes Status: Acute Assessment and plan: Cardiac workup negative. Pt complains of odynophagia and dysphagia. She has had abnormal manometry in the past. Will proceed with EGD to rule out esophageal causes of chest pain including gastritis and esophagitis. Continue PPI. - Time Spent With Patient Total time spent is greater than 50% in coordination of care (as documented) at patient's floor/unit and/or counseling patient: GI History of Present Illness - Data of Consult Consult date: 04/14/17 Requesting Physician: Albina Espinosa CNP - Consult Narrative Reason for consult: chest pain/vomiting and diarrhea History of present illness: Ms. Hanson is a 56 year old female who presented with chest pain radiating down left arm, RITCHIE, nausea and vomiting. She had negative CXR and MRI brain. She has a past surgical history of GERD, HH, HLD, HTN, anxiety, depression and diverticlosiss. Surgical history includes a bowel resection in 2006 due to adhesions, hernia repair, cholecystectomy. Labs showed Hgb 10.6, INR 1.2, T. Bili 0.6, AST 120, ALT 16. She saw Ameya Dangelo CNP in the office 03/27 for dysphagia and was scheduled for EGD 04/21/[address] Cline. She reports dysphagia and she reports feeling like she is getting choked on swallowing solids. She denies any difficulty swallowing liquids. She has had this evaluated approximately one year ago in [place] and had an esophageal manometry which she reports was abnormal. She has a history of GERD and is taking Nexium twice a day which is not controlling symptoms well. She reports alternating constipation and diarrhea and states that she is not taking a fiber supplement or probiotic. EGD 10/24/[address] Moss showed normal esophagus, hiatal hernia, gastritis. Colonoscopy 04/07/[address] Trujillo showed diverticulosis with focal diverticulitis. NSAIDS: none Anticoagulants: none Past Med Surg Social Fam HX - Past Medical History Medical history: GERD, hypertension Psychiatric history: anxiety, depression - Social History Smoking Status: Never smoker Smokeless Tobacco Status: No Alcohol use: none Drug use: none - Family History Mother Living Status: Still Living Hx Family Neurologic Disorders: Yes (brain aneurysm) Father Living Status: Hx Family Endocrine Disorder: Yes (pancreatic cancer) Review of Systems: GI: as per [facility] GENERAL: denies fever or chills EYES: denies yellow discoloration ENT: see HPI CARDIO: had chest pain on admission, cardiac workup negative, no palpitations RESP: No Shortness of breath with exertion : denies change in color of urine NEURO: denies any weakness HEME: Denies any bruising MS: chronic joint pain and back pain. DERM: denies rash or itching PSYCH: history of anxiety or depression - Constitutional Vitals: Temp Pulse Resp BP Pulse Ox 98.6 F 98 16 154/99 95 04/14/17 10:49 04/14/17 10:49 04/14/17 10:49 04/14/17 10:49 04/14/17 10:49 Exam: CONSTITUTIONAL:~alert, no acute distress, anxious.~HEAD:~normocephalic.~EYES:~ no jaundice.~NECK:~no obvious swelling.~HEART:~regular rate and rhythm, no murmurs.~LUNGS:~bilateral good air entry.~ABDOMEN:~non distended, soft, tender epigastric area, midline abdominal scar well healed. no masses palpable, no organomegaly.~RECTAL EXAM:~Deferred.~EXTREMITIES:~no clubbing, cyanosis or edema.~SKIN:~pallor noted, no stigmata of chronic liver disease.~NEUROLOGIC:~no obvious focal defect.~~~~ Results - Labs CBC & Chem 7: 04/14/17 05:20 04/14/17 05:20 Labs: Last Result Calcium 9.6 mg/dL (8.6-10.8) 04/14/17 05:20 Troponin I 0.00 ng/mL (0-0.03) 04/13/17 03:07 Entire Visit Hgb 10.6 g/dL (11.5-15.4) L 04/14/17 05:20 Hct 36.0 % (35.3-44.9) 04/14/17 05:20 PT 12.5 Seconds (9.4-12.1) H 04/14/17 05:20 Total Bilirubin 0.4 mg/dL (0.2-1.2) 04/14/17 05:20 AST 21 Units/L (5-34) 04/14/17 05:20 ALT 16 Units/L (0-55) 04/14/17 05:20 Lipase 29 Units/L (8-78) 04/12/17 15:45 - ABG ABG results: PT/INR, D-dimer PT 12.5 Seconds (9.4-12.1) H 04/14/17 05:20 - Impressions Impressions Brain MRI 04/13/17 14:51 IMPRESSION: No acute intracranial abnormality. No acute infarct. D/ / Micah Harrington MD / Micah Harrington MD Interpreting Provider: Micah Harrington MD Consult Discharge Plan - Plan Referrals: Ren Garcia MD [Primary Care Provider] - <Alvin Mossed - Last Filed: 04/14/17 21:19> Date of Encounter: 04/14/17 Time of Encounter: 17:20 - Time Spent With Patient Total time spent is greater than 50% in coordination of care (as documented) at patient's floor/unit and/or counseling patient: GI History of Present Illness - Data of Consult Requesting Physician: Albina Espinosa CNP - Consult Narrative History of present illness: Ms. Hanson is a 56 year old female - Constitutional Vitals: Temp Pulse Resp BP Pulse Ox 98.5 F 88 16 149/86 91 04/14/17 18:47 04/14/17 18:47 04/14/17 18:47 04/14/17 18:47 04/14/17 18:47 Results - Labs CBC & Chem 7: 04/14/17 05:20 04/14/17 05:20 Labs: Last Result Calcium 9.6 mg/dL (8.6-10.8) 04/14/17 05:20 Iron 19 mcg/dL (50-170) L 04/14/17 15:42 % Saturation 3 % (15-50) L 04/14/17 15:42 Transferrin 398 mg/dL (180-382) H 04/14/17 15:42 Ferritin 11 ng/ml (5-204) 04/14/17 15:42 Troponin I 0.00 ng/mL (0-0.03) 04/13/17 03:07 Entire Visit Hgb 10.6 g/dL (11.5-15.4) L 04/14/17 05:20 Hct 36.0 % (35.3-44.9) 04/14/17 05:20 PT 12.5 Seconds (9.4-12.1) H 04/14/17 05:20 Ferritin 11 ng/ml (5-204) 04/14/17 15:42 Total Bilirubin 0.4 mg/dL (0.2-1.2) 04/14/17 05:20 AST 21 Units/L (5-34) 04/14/17 05:20 ALT 16 Units/L (0-55) 04/14/17 05:20 Lipase 29 Units/L (8-78) 04/12/17 15:45 - ABG ABG results: PT/INR, D-dimer PT 12.5 Seconds (9.4-12.1) H 04/14/17 05:20 - Attending Attestation I examined this patient and my medical decision-making was reviewed with the Resident Physician. I agree with the documented findings, disposition and treatment plan as described except to the extent set forth below.
--- NOTE | 2017-04-14 14:21 | Consult Note ---
Date of Encounter: 04/14/17 Time of Encounter: 13:00 Assessment & Recommendation (1) Anxiety and depression Current visit: Yes Status: Acute Assessment & Recommendation: please continue zoloft 100 mg add gabapentin 100 mg tid vistaril instead of ativan 25 mg bid po prn outpatient psychiatric and counselling appointment. (2) HTN (hypertension) Current visit: Yes Status: Acute Qualifiers: Hypertension type: essential hypertension Qualified Code(s): I10 - Essential (primary) hypertension (3) Chest pain Current visit: Yes Status: Acute Qualifiers: Chest pain type: other chest pain Qualified Code(s): R07.89 - Other chest pain; R07.8 - Other chest pain History of Present Illness Requesting Physician: Albina Espinosa CNP Reason for consult: history of anxiety , recently taken off ativan , now increase anxiety and c History of present illness: Ms. Hanson is a 56 year old female consulted today for anxiety and medication change. Patient seen today , lying comfortably in bed, states I am doing alright now. She has h/o anxiety and depression for 6 years now and on medication by her Psychiatrist Dr Lambert who left her practice and since then getting zoloft and ativan from PCP. she states Ativan was stopped and she has not taken it for 1 month and her anxiety was worsening and she has multiple health problems and chronic pain , ten started having chest pains and came to ED. She was given ativan in hospital and she is little better. She is aware of opiates and benzodiazepine is not good and wants to get something else for anxiety , she has tried buspar in past and several other antidepressant. At present depression is stable but has generalized anxiety and at times sleep not good, no si/hi, no psychosis, no manic episode. She lives with her mother and has support from her son. A/P Generalized Anxiety Disorder Depression nos. Please Start gabapentin 100 mg tid. continue zoloft 150 mg vistaril 25 mg po prn for anxiety social service to make outpatient psychiatric and counselling appointent patient was given education about meds and side effects. Thank you for consult. CC: Albina Espinosa CNP Past Med Surg Social Fam HX - Past Medical History Medical history: GERD, hypertension - Past Psychiatric History Psychiatric history: Reports: anxiety, depression Family psychiatric history: No Family History of Suicide: None - Social History Smoking Status: Never smoker Smokeless Tobacco Status: No Alcohol use: none Drug use: none - Family History Mother Living Status: Still Living Hx Family Neurologic Disorders: Yes (brain aneurysm) Father Living Status: Hx Family Endocrine Disorder: Yes (pancreatic cancer) Medications & Allergies Esomeprazole Magnesium [Nexium] 40 mg PO BID 04/12/17 [History] Hydroxychloroquine [Plaquenuil] 200 mg PO BID 04/12/17 [History] Metoprolol [Lopressor] 25 mg PO BID 04/12/17 [History] Oxycodone HCl/Acetaminophen [Percocet 10-325 mg Tablet] 1 each PO TID PRN [History] Promethazine [Phenergan] 25 mg PO TID PRN 04/12/17 [History] Sertraline [Zoloft] 150 mg PO DAILY 04/12/17 [History] hydroCHLOROthiazide [Hydrochlorothiazide] 25 mg PO DAILY 04/12/17 [History] 3 Allergy/AdvReac Type Severity Reaction Status Date / Time escitalopram [From Lexapro] Allergy Hives Verified 04/12/17 17:27 Sulfa (Sulfonamide Allergy Hives Verified 04/12/17 15:43 Antibiotics) amlodipine [From Norvasc] AdvReac Headache Verified 04/12/17 17:27 aripiprazole [From Abilify] AdvReac Unknown Verified 04/12/17 17:27 codeine AdvReac Vomiting Verified 04/12/17 17:27 duloxetine [From Cymbalta] AdvReac Unknown Verified 04/12/17 17:27 quetiapine [From Seroquel] AdvReac Chest Pain Verified 04/12/17 17:27 Review of Systems Psychiatric: Reports: depression, anxiety Mental Status Exam Patient orientation: Yes Person, Yes Time, Yes Place Level of alertness: Alert Patient appearance: Appropriate Behavior: calm, cooperative Psychomotor activity: Normal Eye contact: Maintains Eye Contact Mood description: Anxious Affect description: congruent with mood Speech pattern: Coherent Speech volume: Normal Thought process: Intact Thought content: Yes Intact Attention span: Capable of Focused Attention Memory description: Grossly Intact Patient reliability: Reliable Historian Intelligence estimate: Average Judgment: Good Insight: Full Results - Vital Signs Vital signs: Temp Pulse Resp BP Pulse Ox 98.6 F 98 16 154/99 95 10/05/17 10:49 04/14/17 10:49 04/14/17 10:49 04/14/17 10:49 04/14/17 10:49 - Labs Labs: Laboratory Last Values WBC 7.9 K/mcL (4.3-11.1) 04/14/17 05:20 RBC 5.21 M/mcL (3.82-4.97) H 04/14/17 05:20 Hgb 10.6 g/dL (11.5-15.4) L 04/14/17 05:20 Hct 36.0 % (35.3-44.9) 04/14/17 05:20 MCV 69.1 fL (83.0-100.0) L 04/14/17 05:20 MCH 20.3 pg (28.0-33.3) L 04/14/17 05:20 MCHC 29.4 g/dL (31.6-35.5) L 04/14/17 05:20 RDW 18.4 % (11.5-14.5) H 04/14/17 05:20 Plt Count 310 K/mcL (140-400) 04/14/17 05:20 MPV 10.0 fL (9.4-12.4) 04/14/17 05:20 Immature Gran % 0.5 % (0-4) 04/13/17 03:07 Seg Neutrophils % 61.6 % 04/13/17 03:07 Lymphocytes % 27.0 % 04/13/17 03:07 Monocytes % 8.4 % 04/13/17 03:07 Eosinophils % 1.4 % 04/13/17 03:07 Basophils % 1.1 % 04/13/17 03:07 Neutrophils # 5.7 K/mcL (1.6-8.9) 04/13/17 03:07 Lymphocytes # 2.5 K/mcL (0.6-4.6) 04/13/17 03:07 Monocytes # 0.8 K/mcL (0.0-1.3) 04/13/17 03:07 Eosinophils # 0.1 K/mcL (0.0-0.6) 04/13/17 03:07 Basophils # 0.1 K/mcL (0.0-0.2) 04/13/17 03:07 Platelet Estimate Normal (Normal) 04/13/17 03:07 Polychromasia 1+ (Not Present) A 04/13/17 03:07 Anisocytosis 1+ (Not Present) A 04/13/17 03:07 Microcytosis Present (Not Present) A 04/13/17 03:07 PT 12.5 Seconds (9.4-12.1) H 04/14/17 05:20 INR 1.2 04/14/17 05:20 APTT 28.4 Seconds (26.0-36.0) 04/12/17 15:45 Sodium 143 mEq/L (136-145) D 04/14/17 05:20 Potassium 3.7 mEq/L (3.5-4.5) 04/14/17 05:20 Chloride 106 mEq/L (98-109) 04/14/17 05:20 Carbon Dioxide 26 mEq/L (19-29) 04/14/17 05:20 BUN 7 mg/dL (7-20) 04/14/17 05:20 Creatinine 0.70 mg/dL (0.57-1.11) 04/14/17 05:20 Est GFR ( Amer) > 60 (> 60) 04/14/17 05:20 Est GFR (Non-Af Amer) > 60 (> 60) 04/14/17 05:20 BUN/Creatinine Ratio 10 (6-26) 04/14/17 05:20 Glucose 119 mg/dL (70-99) H 04/14/17 05:20 Calculated Osmolality 295 (280-300) 04/14/17 05:20 Calcium 9.6 mg/dL (8.6-10.8) 04/14/17 05:20 Total Bilirubin 0.4 mg/dL (0.2-1.2) 04/14/17 05:20 Direct Bilirubin 0.2 mg/dL (0.0-0.5) 04/12/17 15:45 Indirect Bilirubin 0.4 mg/dL (0.0-1.2) 04/12/17 15:45 AST 21 Units/L (5-34) 04/14/17 05:20 ALT 16 Units/L (0-55) 04/14/17 05:20 Alkaline Phosphatase 90 Units/L (38-126) 04/14/17 05:20 Troponin I 0.00 ng/mL (0-0.03) 04/13/17 03:07 B-Natriuretic Peptide 108 pg/mL (0-100) H 04/12/17 15:45 Serum Total Protein 7.2 g/dL (6.0-8.3) 04/14/17 05:20 Albumin 3.9 g/dL (3.5-5.0) 04/14/17 05:20 Globulin 3.3 g/dL (2.4-3.5) 04/14/17 05:20 Albumin/Globulin Ratio 1.2 (1.1-2.2) 04/14/17 05:20 Lipase 29 Units/L (8-78) 04/12/17 15:45 TSH 1.210 mcIU/mL (0.350-4.840) 04/12/17 15:45 Urine Color Yellow (Yellow) 04/12/17 16:00 Urine Clarity Clear (Clear) 04/12/17 16:00 Urine pH 6.0 pH Units (5.0-8.0) 04/12/17 16:00 Ur Specific [place] 1.008 (1.010-1.025) L 04/12/17 16:00 Urine Protein Negative mg/dL (Neg-Trace) 04/12/17 16:00 Urine Glucose (UA) Normal mg/dL (Normal) 04/12/17 16:00 Urine Ketones Negative mg/dL (Negative) 04/12/17 16:00 Urine Blood Negative (Negative) 04/12/17 16:00 Urine Nitrite Negative (Negative) 04/12/17 16:00 Urine Bilirubin Negative (Negative) 04/12/17 16:00 Urine Urobilinogen Normal mg/dL (Normal) 04/12/17 16:00 Ur Leukocyte Esterase Negative (Negative) 04/12/17 16:00 Ur Culture Indicated? NO (NO) 04/12/17 16:00 Specimen Rejected Not Liquid 04/14/17 10:25 Consult Discharge Plan - Plan Referrals: Ren Garcia MD [Primary Care Provider] -
[2017-04-14] MEDS ORDERED: Tetracaine/Benzocaine/Butamben 200MG/SPRAY (100SPY/BOT) MM ONE (16:46)
[2017-04-14] MEDS ORDERED: Simethicone 40 MG/0.6 ML MLS IR ONE (16:46)
[2017-04-14] MEDS ORDERED: *HR* FentaNYL (PF) 100 MCG/2 ML VIAL ONE (17:02)
[2017-04-14] MEDS ORDERED: *HR* Midazolam HCl 5 MG/5 ML VIAL IVP ONE (17:02)
[2017-04-14 17:32] LABS: % Iron Saturation 3 % (15-50); Iron 19 mcg/dL (50-170); Transferrin 398 mg/dL (180-382)
[2017-04-14] MEDS: *HR* FentaNYL (PF) 100 MCG/2 ML VIAL IVP PRN ×2 (17:40→17:45)
[2017-04-14] MEDS: *HR* Midazolam HCl 5 MG/5 ML VIAL IVP PRN ×3 (17:40→17:42)
--- NOTE | 2017-04-14 17:41 | Pre-Sedation Evaluation ---
Pre-sedation evaluation - Pre-sedation checklist Recent Vitals: Last Vital Signs Temp 98.0 F 04/14/17 17:34 Pulse 100 04/14/17 17:37 Resp 20 04/14/17 17:37 BP 207/115 04/14/17 17:37 Pulse Ox 95 04/14/17 17:37 ASA Classification *see protocol: CLASS III-Severe systemic disease Plan of Care: Pt appropriate candidate for procedure/moderate/conscious sedation , Risks/benefits of procedure/sedation discussed w/ patient/family
[2017-04-14 17:53] LABS: Ferritin 11 ng/ml (5-204)
[2017-04-14] MEDS: Gabapentin 100 MG CAPSULE PO SCH (21:56)
[2017-04-14 23:27] LABS: Bilirubin,Urine Negative (Negative); Blood,Urine Negative (Negative); Clarity,Urine Clear (Clear); Color,Urine Yellow (Yellow); Glucose,Urine (UA) Normal (Normal); Ketones,Urine Negative (Negative); Leukocyte Esterase,Urine Negative (Negative); Nitrite,Urine Negative (Negative); Protein,Urine Trace mg/dL (Neg-Trace); Specific Gravity,Urine 1.024 (1.010-1.025); Urobilinogen,Urine Normal (Normal)
[2017-04-14 23:28] LABS: Bacteria,Urine None Seen per hpf (None-Few); Hyaline Casts,Urine None Seen per lpf (None-Few); RBC,Urine 0-3 per hpf (0-3); Squamous Epithelial Cell,Urine Many per lpf (None-Few); WBC,Urine 0-3 per hpf (0-3)
[2017-04-15 05:24] LABS: Hematocrit 36.5 % (35.3-44.9); Hemoglobin 10.7 g/dL (11.5-15.4); Mean Corpuscular HGB Conc 29.3 g/dL (31.6-35.5); Mean Corpuscular Hemoglobin 20.3 pg (28.0-33.3); Mean Corpuscular Volume 69.4 fL (83.0-100.0); Mean Platelet Volume 10.2 fL (9.4-12.4); Platelet Count 326 K/mcL (140-400); Red Blood Count 5.26 M/mcL (3.82-4.97); Red Cell Distribution Width 18.7 % (11.5-14.5)
[2017-04-15 05:39] LABS: Alanine Aminotransferase 17 Units/L (0-55); Albumin 3.8 g/dL (3.5-5.0); Albumin/Globulin Ratio 1.2 (1.1-2.2); Alkaline Phosphatase 85 Units/L (38-126); Aspartate Amino Transferase 21 Units/L (5-34); BUN/Creatinine Ratio 15 (6-26); Bilirubin,Total 0.5 mg/dL (0.2-1.2); Blood Urea Nitrogen 10 mg/dL (7-20); Calcium 9.3 mg/dL (8.6-10.8); Carbon Dioxide 26 mEq/L (19-29); Chloride 106 mEq/L (98-109); Globulin 3.3 g/dL (2.4-3.5); Glucose 112 mg/dL (70-99); Osmolality,Calculated 296 (280-300); Potassium 3.3 mEq/L (3.5-4.5); Sodium 143 mEq/L (136-145); Total Protein 7.1 g/dL (6.0-8.3); eGFR For African Americans > 60 (> 60); eGFR For Non-African Americans > 60 (> 60)
[2017-04-15] MEDS: *HR* Enoxaparin 40 MG/0.4 ML SYRINGE SQ SCH (06:14)
--- NOTE | 2017-04-15 08:09 | Electrocardiograph Report ---
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
[2017-04-15] MEDS: hydroCHLOROthiazide 25 MG TABLET PO SCH (08:54)
[2017-04-15] MEDS: Gabapentin 100 MG CAPSULE PO SCH (08:54)
[2017-04-15] MEDS: Aspirin Enteric Coated 81 MG Tablet PO SCH (08:57)
[2017-04-15] MEDS: *HR* OxyCODONE/APAP 10/325 TABLET PO PRN (09:04)
[2017-04-15 11:24] VITALS: BP 137/79
[2017-04-15] MEDS ORDERED: hydrOXYzine pamoate 25 MG CAPSULE PO PRN (14:48)
--- NOTE | 2017-04-15 14:51 | Discharge Summary ---
Date of Encounter: 04/15/17 Time of Encounter: 14:51 - Discharge Diagnosis (1) Chest pain Priority: Primary Status: Acute Comments: Bharti Hanson is a 56-year-old female with past medical history hypertension anxiety and depression who presented to [facility] on 04/12/2017 with complaints of chest pain and left-sided arm numbness/tingling. She was placed in observation status for ACS rule out. Hospitalization prolonged due to need for GI and Psych consult and uncontrolled BP. Acute ACS, CVA and pulmonary embolism ruled out as noted below. Suspect symptoms secondary to uncontrolled increased anxiety. She was discharged home on 04/15/2017 in stable condition with outpatient follow-up. 1. Hiatal hernia: with diffuse esophageal spasm. Patient reports recent EGD at [facility] that showed impairment in peristalsis; she was advised to seek a second opinion. 04/14/2017 wEGD with normal esophagus, large hiatal hernia, gastritis. Biopsies were taken. Start PPI daily and twice a day Carafate. Will need to follow-up with GI outpatient. 2. Chest pain: with associated left arm paresthesia that started morning of admission. ASA given in ED. ACS ruled out with negative serial troponin and negative Lexiscan stress test. CVA ruled out with negative brain MRI. CTA chest negative for pulmonary embolism. Suspect anxiety is contributing to chest pain. This pain resolved at time of discharge. 3. Anxiety with depression: per hx. Patient appears very anxious on exam. Follows with psychiatry outpatient and was tapered off Ativan approximately 3 months ago. Suspect her anxiety is contributing to her chest pain and left arm paresthesia. Continue home Zoloft. Psychiatry consult at 4 official medication recommendations. Ativan started on admission. Evaluated by psychiatry who recommended continuing Zoloft, adding gabapentin 100 mg TID and Vistaril 25 mg BID PRN anxiety. 4. Hypertension: per hx. BP uncontrolled while inpatient. Home BB increased with improvement in blood pressure. Continue home BP medication regimen with increased dose of BB. Recommend follow-up with PCP in one week for BP recheck. 5. Loose stool: Reports 2 episodes of watery stool on 04/13/17. Was treated for UTI with ATB approximately 2 months ago. Stool too formed to check for C. diff. Cont PRN loperamide 6. Hypokalemia: K 3.1 and in the setting of loose stool. Normalized with replacement. Recommend repeat CMP within 1 week with PCP. Qualifiers: Chest pain type: other chest pain Qualified Code(s): R07.89 - Other chest pain; R07.8 - Other chest pain (2) Anxiety and depression Priority: Primary Status: Acute (3) Diffuse esophageal spasm Priority: Primary Status: Acute (4) DVT prophylaxis Priority: Primary Status: Acute (5) HTN (hypertension) Priority: Primary Status: Acute Qualifiers: Hypertension type: essential hypertension Qualified Code(s): I10 - Essential (primary) hypertension - Discharge Medications Prescriptions: Gabapentin [Neurontin] 100 mg PO TID #60 capsule HydrOXYzine 25 mg PO BID PRN #60 tablet PRN Reason: Anxiety Metoprolol [Lopressor] 50 mg PO BID #60 tablet Sucralfate [Carafate] 1 gm PO 0730,1630 #60 tablet Home Medications: Esomeprazole Magnesium [Nexium] 40 mg PO BID 04/12/17 [History] Hydroxychloroquine [Plaquenuil] 200 mg PO BID 04/12/17 [History] Oxycodone HCl/Acetaminophen [Percocet 10-325 mg Tablet] 1 each PO TID PRN [History] Promethazine [Phenergan] 25 mg PO TID PRN 04/12/17 [History] Sertraline [Zoloft] 150 mg PO DAILY 04/12/17 [History] hydroCHLOROthiazide [Hydrochlorothiazide] 25 mg PO DAILY 04/12/17 [History] Gabapentin [Neurontin] 100 mg PO TID #60 capsule 04/15/17 [Rx] HydrOXYzine 25 mg PO BID PRN #60 tablet 04/15/17 [Rx] Metoprolol [Lopressor] 50 mg PO BID #60 tablet 04/15/17 [Rx] Sucralfate [Carafate] 1 gm PO 0730,1630 #60 tablet 04/15/17 [Rx] Allergies/Adverse Reactions: 3 Allergy/AdvReac Type Severity Reaction Status Date / Time escitalopram [From Lexapro] Allergy Hives Verified 04/12/17 17:27 Sulfa (Sulfonamide Allergy Hives Verified 04/12/17 15:43 Antibiotics) amlodipine [From Norvasc] AdvReac Headache Verified 04/12/17 17:27 aripiprazole [From Abilify] AdvReac Unknown Verified 04/12/17 17:27 codeine AdvReac Vomiting Verified 04/12/17 17:27 duloxetine [From Cymbalta] AdvReac Unknown Verified 04/12/17 17:27 quetiapine [From Seroquel] AdvReac Chest Pain Verified 04/12/17 17:27 Procedures/tests Complete & Pending: Procedures Performed prior 72 hours Category Date Time Status CTA chest [CT angio chest] [CT] Stat Cat Scan 04/15/17 11:45 Draft EV echocardiogram Stat Y 04/15/17 09:18 Ordered Date of admission: 04/14/17 12:58 Primary care physician: Ren Garcia MD Consults: 04/14/17 18:21 Consult to Patient Account Representative [CONS] Routine Reason for SW Consult: outpatient psych services and councelling Discharging clinician: Albina Espinosa Anticipated date of discharge: 04/15/17 - Patient Status Disposition: Home, Self-Care Condition: Good Functional capacity at discharge: independent ambulation Overall status at discharge: patient is back to baseline - Discharge Instructions Follow Up With: Ren Garcia MD [Primary Care Provider] - - Diet and Activity Activity: resume usual activities as tolerated Diet: advance to your usual diet Interval History: And examined at bedside. Still with complaints of anxiety but says she feels overall better. Discussed with patient at length the need to follow up with PCP in outpatient psychiatry. Also advised patient that she will need to follow -up with GI. She denies chest pain, no SOB on my exam. Hospital course: See assessment and plan for hospital course. - Time Spent with Patient Total time spent providing and/or coordinating discharge services: Greater than 30 minutes (42 minutes spent on discharge) - Constitutional Vitals: Temp Pulse Resp BP Pulse Ox 98.1 F 76 16 137/79 92 04/15/17 11:21 04/15/17 11:21 04/15/17 11:21 04/15/17 11:21 04/15/17 11:21 General appearance: Present: A&O X 3, no acute distress, answers questions appropriately - Head Head exam: Present: atraumatic, normocephalic - Eye Eye exam: Present: PERRL, conjuntiva pink, sclera anicteric Pupils: Present: PERRL - Neck Neck exam general surgery: Present: supple, trachea midline. Absent: lymphadenopathy - Respiratory Respiratory exam: Present: CTAB. Absent: accessory muscle use, rales, rhonchi, wheezes - Cardiovascular Cardiovascular exam: Present: RRR, +S1, +S2. Absent: diastolic murmur, gallop, rubs, systolic murmur - GI/Abdominal GI/Abdominal exam: Present: normal bowel sounds, soft, no peritoneal signs. Absent: distended, tenderness - Extremities Exam Extremities exam: Present: warm, radial pulses palpable and symmetrical. Absent : calf tenderness, cyanotic, pedal edema - Neurological Exam Neurological exam: Present: CN II-XII intact, oriented X3, no focal deficits. Absent: pronater drift, facial droop, speech deficit - Psychiatric Psychiatric exam: Present: anxious - Skin Skin exam: Present: dry, intact
[2017-04-15] MEDS ORDERED: Sucralfate 1 GM TABLET PO SCH (16:30)
== END 2017-04-15 17:48 | disposition home or self-care (01) | DRG 880 ==
LOC: 3BNU 15:32 → EMEROO 15:32 → 3BNU 18:12
PROVIDERS: ADMIT Nurse Practitioner Family; ATTEND Registered Nurse
PROC: ENDOEBX (2017-04-14 13:30)

== ENCOUNTER 2019-04-08 22:40 | Inpatient (IN) ==
[2019-04-09] MEDS ORDERED: Haloperidol Lactate 5 MG/ML VIAL IVP ONE (01:25)
[2019-04-09] MEDS ORDERED: *HR* Nalbuphine 10 MG/ML AMPUL IV ONE (01:26)
[2019-04-09] MEDS ORDERED: Famotidine 20 MG/2 ML VIAL IVP ONE (01:26)
[2019-04-09] MEDS: Ringers Solution, Lactated 1,000 ML IVC SCH ×2 (02:12→08:10)
[2019-04-09] MEDS: Ondansetron 4 MG/2 ML VIAL IVP PRN ×3 (02:18→19:43)
[2019-04-09] MEDS: *HR* Promethazine 25 MG/ML VIAL IVP PRN ×4 (05:07→21:27)
[2019-04-09 06:31] LABS: Basophils # 0.1 K/mcL (0.0-0.2); Basophils % 0.5 %; Hematocrit 45.8 % (35.3-44.9); Hemoglobin 14.3 g/dL (11.5-15.4); Immature Granulocytes % 0.8 % (0-4); Lymphocytes # 1.1 K/mcL (0.6-4.6); Lymphocytes % 8.2 %; Mean Corpuscular HGB Conc 31.2 g/dL (31.6-35.5); Mean Corpuscular Hemoglobin 24.7 pg (28.0-33.3); Mean Platelet Volume 9.8 fL (9.4-12.4); Monocytes # 0.3 K/mcL (0.0-1.3); Monocytes % 2.1 %; Neutrophils # 11.4 K/mcL (1.6-8.9); Platelet Count 310 K/mcL (140-400); Segmented Neutrophils % 88.4 %; White Blood Count 12.9 K/mcL (4.3-11.1)
[2019-04-09 07:14] LABS: Alanine Aminotransferase 14 Units/L (7-52); Albumin 4.5 g/dL (3.5-5.7); Albumin/Globulin Ratio 1.6 (1.1-2.2); Alkaline Phosphatase 88 Units/L (34-104); Aspartate Amino Transferase 18 Units/L (13-39); BUN/Creatinine Ratio 24 (6-26); Bilirubin,Direct 0.1 mg/dL (0.0-0.2); Bilirubin,Indirect 0.4 mg/dL (0.0-1.2); Bilirubin,Total 0.5 mg/dL (0.3-1.0); Blood Urea Nitrogen 12 mg/dL (6-20); Calcium 9.1 mg/dL (8.6-10.3); Carbon Dioxide 23 mEq/L (23-29); Chloride 99 mEq/L (98-107); Globulin 2.8 g/dL (2.4-3.5); Glucose 144 mg/dL (70-105); Magnesium 1.8 mg/dL (1.6-2.6); Osmolality,Calculated 280 (280-300); Phosphorous 3.4 mg/dL (2.7-4.5); Potassium 3.4 mEq/L (3.5-5.1); Sodium 134 mEq/L (136-145); Total Protein 7.3 g/dL (6.4-8.9); eGFR For African Americans > 60 (> 60); eGFR For Non-African Americans > 60 (> 60)
[2019-04-09] MEDS ORDERED: *HR* LORazepam 2 MG/ML VIAL IM STA (09:58)
[2019-04-09] MEDS ORDERED: *HR* Propofol 200 MG/20 ML VIAL IVP ONE ×3 (12:01→13:26)
[2019-04-09] MEDS ORDERED: *HR* Midazolam HCl 2 MG/2 ML VIAL ONE (12:02)
[2019-04-09] MEDS ORDERED: Lidocaine -MPF 4% 5 ML AMPUL ONE (12:02)
[2019-04-09] MEDS ORDERED: Ondansetron 4 MG/2 ML VIAL ONE (12:02)
[2019-04-09] MEDS: 0.9 % Sodium Chloride 500 ML IVC SCH ×2 (13:22→16:12)
[2019-04-09] MEDS ORDERED: Simethicone 40 MG/0.6 ML MLS IR ONE (13:23)
[2019-04-09] MEDS ORDERED: *HR* Metoprolol 5 MG/5 ML VIAL IVP ONE (13:26)
[2019-04-09] MEDS ORDERED: *HR* Labetalol 20 MG/4 ML SYRINGE IVP PRN (13:50)
[2019-04-09] MEDS: *HR* OxyCODONE/APAP 10/325 TABLET PO PRN (16:48)
[2019-04-09] MEDS: Nitroglycerin 0.4 MG TAB.SUBL SL PRN (16:48)
[2019-04-09] MEDS: *HR* Labetalol 20 MG/4 ML SYRINGE IVP PRN (20:07)
[2019-04-09] MEDS ORDERED: Ketorolac 15 MG/ML VIAL IVP ONE (23:10)
[2019-04-09] MEDS ORDERED: Prochlorperazine 10 MG/2 ML VIAL IVP PRN (23:11)
[2019-04-10] MEDS: *HR* Promethazine 25 MG/ML VIAL IVP PRN ×4 (02:19→22:03)
[2019-04-10] MEDS: *HR* Labetalol 20 MG/4 ML SYRINGE IVP PRN ×3 (03:43→13:22)
[2019-04-10] MEDS ORDERED: *HR* Metoprolol 5 MG/5 ML VIAL IVP ONE (04:27)
[2019-04-10] MEDS: Ondansetron 4 MG/2 ML VIAL IVP PRN ×2 (04:42→11:43)
[2019-04-10] MEDS: *HR* OxyCODONE/APAP 10/325 TABLET PO PRN ×3 (04:48→22:03)
[2019-04-10 06:43] LABS: White Blood Count 14.4 K/mcL (4.3-11.1)
[2019-04-10 06:44] LABS: Basophils # 0.1 K/mcL (0.0-0.2); Basophils % 0.4 %; Hematocrit 41.5 % (35.3-44.9); Hemoglobin 13.4 g/dL (11.5-15.4); Immature Granulocytes % 0.6 % (0-4); Lymphocytes # 1.9 K/mcL (0.6-4.6); Lymphocytes % 13.1 %; Mean Corpuscular HGB Conc 32.3 g/dL (31.6-35.5); Mean Corpuscular Hemoglobin 24.5 pg (28.0-33.3); Mean Corpuscular Volume 75.9 fL (83.0-100.0); Mean Platelet Volume 9.6 fL (9.4-12.4); Monocytes # 0.9 K/mcL (0.0-1.3); Monocytes % 6.3 %; Neutrophils # 11.4 K/mcL (1.6-8.9); Platelet Count 385 K/mcL (140-400); Red Blood Count 5.47 M/mcL (3.82-4.97); Red Cell Distribution Width 14.1 % (11.5-14.5); Segmented Neutrophils % 79.6 %
[2019-04-10 07:09] LABS: BUN/Creatinine Ratio 20 (6-26); Blood Urea Nitrogen 11 mg/dL (6-20); Calcium 8.9 mg/dL (8.6-10.3); Carbon Dioxide 27 mEq/L (23-29); Chloride 94 mEq/L (98-107); Glucose 130 mg/dL (70-105); Osmolality,Calculated 277 (280-300); Sodium 133 mEq/L (136-145); eGFR For African Americans > 60 (> 60); eGFR For Non-African Americans > 60 (> 60)
[2019-04-10] MEDS: Nitroglycerin 0.4 MG TAB.SUBL SL PRN (13:23)
[2019-04-10] MEDS ORDERED: Prochlorperazine 10 MG/2 ML VIAL IVP PRN (13:39)
[2019-04-10] MEDS: 0.9 % Sodium Chloride 500 ML IVC SCH ×2 (16:08→22:39)
[2019-04-10] MEDS ORDERED: *HR* LORazepam 2 MG/ML VIAL IVP ONE (17:01)
[2019-04-10] MEDS ORDERED: hydrOXYzine pamoate 25 MG CAPSULE PO PRN (18:02)
[2019-04-10 18:48] LABS: Amylase 15 Units/L (29-103); Lipase 16 Units/L (11-82)
[2019-04-10] MEDS: Gabapentin 300 MG CAPSULE PO SCH (20:48)
[2019-04-10] MEDS: traZODone 50 MG TABLET PO SCH (20:55)
[2019-04-10] MEDS: Metoclopramide 10 MG/2 ML VIAL IVP SCH (20:55)
[2019-04-11] MEDS: *HR* Labetalol 20 MG/4 ML SYRINGE IVP PRN ×2 (00:22→05:58)
[2019-04-11] MEDS: *HR* Promethazine 25 MG/ML VIAL IVP PRN ×2 (03:15→11:46)
[2019-04-11] MEDS: 0.9 % Sodium Chloride 500 ML IVC SCH (03:22)
[2019-04-11 05:36] LABS: Hematocrit 42.7 % (35.3-44.9); Hemoglobin 13.8 g/dL (11.5-15.4); Mean Corpuscular HGB Conc 32.3 g/dL (31.6-35.5); Mean Corpuscular Hemoglobin 25.3 pg (28.0-33.3); Mean Corpuscular Volume 78.2 fL (83.0-100.0); Mean Platelet Volume 9.5 fL (9.4-12.4); Platelet Count 325 K/mcL (140-400); Red Blood Count 5.46 M/mcL (3.82-4.97); Red Cell Distribution Width 14.3 % (11.5-14.5); White Blood Count 12.1 K/mcL (4.3-11.1)
[2019-04-11 05:58] LABS: Alanine Aminotransferase 10 Units/L (7-52); Albumin 4.1 g/dL (3.5-5.7); Albumin/Globulin Ratio 1.6 (1.1-2.2); Alkaline Phosphatase 86 Units/L (34-104); Aspartate Amino Transferase 17 Units/L (13-39); BUN/Creatinine Ratio 30 (6-26); Bilirubin,Total 0.7 mg/dL (0.3-1.0); Blood Urea Nitrogen 14 mg/dL (6-20); Carbon Dioxide 25 mEq/L (23-29); Chloride 98 mEq/L (98-107); Globulin 2.6 g/dL (2.4-3.5); Glucose 125 mg/dL (70-105); Osmolality,Calculated 278 (280-300); Sodium 133 mEq/L (136-145); Total Protein 6.7 g/dL (6.4-8.9); eGFR For African Americans > 60 (> 60); eGFR For Non-African Americans > 60 (> 60)
[2019-04-11] MEDS: Gabapentin 300 MG CAPSULE PO SCH ×2 (07:48→21:21)
[2019-04-11] MEDS: amLODIPine 5 MG TABLET PO SCH (07:48)
[2019-04-11] MEDS: Metoclopramide 10 MG/2 ML VIAL IVP SCH ×3 (07:48→21:22)
[2019-04-11] MEDS: *HR* OxyCODONE/APAP 10/325 TABLET PO PRN ×2 (07:49→15:36)
[2019-04-11] MEDS ORDERED: NON-FORMULARY MEDICATION 1 EACH EACH (Pantoprazole Sodium [Protonix] 40 MG) PO SCH (09:00)
[2019-04-11] MEDS ORDERED: E-Z-HD (BARIUM SULF) SUSPENSION PO ONE (13:28)
[2019-04-11] MEDS ORDERED: Simethicone/Sodium Bic/Citr Ac 1 EACH GRAN.EF.PK PO ONE (13:28)
[2019-04-11] MEDS ORDERED: E-Z-PAQUE (BARIUM SULF) SUSP 1 BOTTLE PO ONE (13:28)
[2019-04-11] MEDS: traZODone 50 MG TABLET PO SCH (21:22)
[2019-04-12] MEDS: *HR* OxyCODONE/APAP 10/325 TABLET PO PRN ×2 (00:27→11:13)
[2019-04-12] MEDS: Metoclopramide 10 MG/2 ML VIAL IVP SCH (08:50)
[2019-04-12] MEDS: Gabapentin 300 MG CAPSULE PO SCH (08:50)
[2019-04-12] MEDS: amLODIPine 5 MG TABLET PO SCH (08:51)
[2019-04-12] MEDS ORDERED: Sucralfate 1 GM TABLET PO ONE (10:17)
[2019-04-12 12:23] VITALS: BP 125/75
== END 2019-04-12 12:35 | disposition home or self-care (01) | DRG 392 ==
LOC: 3ANU → SUATTDRO 04-09 00:13
PROVIDERS: ADMIT Internal Medicine; ATTEND Internal Medicine
PROC: ENDOEBX (2019-04-09 13:30)